=== PATIENT | female | born 1935 | race Caucasian/White ===

== ENCOUNTER 2019-01-13 11:00 | Emergency (ER) | payer MEDICARE, OTHER ==
--- NOTE | 2019-01-13 12:55 | CT ---
INDICATION: Worst headache frontal times [address] HEAD WITHOUT CONTRAST: Spiral examination of the brain was obtained with 3.75 mm axial sections with sagittal and coronal reconstructions 01/13/19--no comparisons. Total exam DLP = 1193.45 mGy-cm. noted in the internal carotid arteries especially the left. The left internal carotid artery extends to the middle cerebral and in the proximal cerebral segment of the middle cerebral artery on the left there is an appearance of increased density. This raises question of an acute embolus compatible with a very early thrombotic CVA. No definite sequela of this finding is identified at this time. It may represent an early finding. Cerebral angiography or CTA or MRA, may be helpful for further evaluation. There is some patchy increased density in the white matter suggesting a mild degree of microvascular disease. No shift of midline structures is seen. The ventricles are slightly prominent especially the right which may represent a mild degree of central atrophy. There also is prominence of the sulci at the temporal lobes and frontally compatible with asymmetrical frontal and temporal cortical atrophy. No definite bleeding site or hematoma was identified. Orbits appear to be grossly intact. The visualized paranasal sinuses and mastoid air cells appear to be fairly well aerated. No definite cranial abnormality was seen. IMPRESSION: 1. Cerebrovascular disease with possible thrombus in the proximal middle cerebral artery on the left. 2. Possible mild central atrophy more prominent on the right. 3. Cortical atrophy frontal temporal. 4. Suggestion of minimal microvascular disease. Report was called to Dr. Pierson at [address] [facility]
[2019-01-13] MEDS ORDERED: Gadoteridol 279.3 MG/ML 20 ML SDV IV SCH (14:15)
[2019-01-13] MEDS ORDERED: Levofloxacin 500 MG Tab PO STA (15:19)
[2019-01-13] MEDS ORDERED: Ketorolac 30 MG/ML SDV IM STA (15:20)
--- NOTE | 2019-01-13 16:19 | EDM.PDOC ---
ED HPI GENERAL MEDICAL PROBLEM - General Chief Complaint: Headache Stated Complaint: KIDNEY INFECTION Time Seen by Provider: 01/13/19 11:00 Source of Information: Reports: Patient, Family History Limitations: Reports: No Limitations - History of Present Illness INITIAL COMMENTS - FREE TEXT/NARRATIVE: 83 y.o.w.f was transferred from the clinic to the ED because of Dizziness and right flank pain. UA was pos for UTI. The symptoms were starting a few days ago. No trauma. No N/V No SOB, No CP. Please see H&P from the clinic.No other acute medical issues. BP 151/78 RR 18 Pulse ox 100% Pulse 75 Temp 36.8 Onset Date: 01/09/19 Onset Time: 09:00 Duration: Day(s):, Intermittent Location: Reports: Head, Back Quality: Reports: Dull Severity: Mild Improves with: Reports: Rest Worsens with: Reports: Movement Context: Reports: Other (Dysuria) Associated Symptoms: Reports: No Other Symptoms right side flank pain Pain Score (Numeric/FACES): 7 head Pain Score (Numeric/FACES): 4 - Related Data Allergies Allergy/AdvReac Type Severity Reaction Status Date / Time Dairy Products Allergy Diarrhea Verified 01/13/19 11:22 Sulfa (Sulfonamide Allergy Hives Verified 01/13/19 11:22 Antibiotics) Home Meds: Home Meds Latanoprost 1 drop EYEBOTH BEDTIME 09/29/14 [History] Losartan [Cozaar] 100 mg PO DAILY 09/29/14 [History] Multivitamin with Minerals [Multiple Vitamin] 1 tab PO DAILY 09/29/14 [History] Simvastatin 20 mg PO BEDTIME 09/29/14 [History] Acetaminophen [Tylenol] 650 mg PO Q4H PRN 08/24/15 [History] Calcium Carbonate/Vitamin D3 [Calcium 600-Vit D3 400 Tablet] 1 tab PO BIDMEALS 08/24/15 [History] Cholecalciferol (Vitamin D3) [Vitamin D3] 1,000 unit PO DAILY 08/24/15 [History] Metoprolol Succinate 25 mg PO DAILY 08/24/15 [History] Omeprazole [Prilosec] 20 mg PO BEDTIME 08/24/15 [History] Levofloxacin 500 mg PO DAILY #10 tablet 01/13/19 [Rx] Past Medical History HEENT History: Reports: Cataract, Glaucoma, Hard of Hearing, Impaired Vision Other HEENT History: both eyes Cardiovascular History: Reports: Blood Clots/VTE/DVT, High Cholesterol, Hypertension Other Cardiovascular History: Blood clots in lungs Gastrointestinal History: Reports: GERD, Hemorrhoids, Other (See Below) Other Gastrointestinal History: LACTOSE INTOLERANCE [employer] History: Reports: Other [employer] History: hysterectomy Musculoskeletal History: Reports: Fracture, Osteoarthritis, Osteoporosis, Other (See Below) Other Musculoskeletal History: hands, fracture of wrist, fracture of right knee Neurological History: Reports: Migraines Other Neuro History: during younger years. Endocrine/Metabolic History: Reports: Diabetes, Type II Hematologic History: Reports: Iron Deficiency Oncologic (Cancer) History: Reports: Breast Other Oncologic History: right breast mastectomy - Infectious Disease History Infectious Disease History: Reports: Chicken Pox, Influenza, Measles, Mumps, Rubella - Past Surgical History HEENT Surgical History: Reports: Cataract Surgery Female Surgical History: Reports: Hysterectomy, Mastectomy Neurological Surgical History: Reports: None Musculoskeletal Surgical History: Reports: Knee Replacement Oncologic Surgical History: Reports: Mastectomy Social & Family History - Family History Family Medical History: Noncontributory HEENT: Reports: Cataract Cardiac: Reports: High Cholesterol, Hypertension, [place] GI: Reports: Cirrhosis Musculoskeletal: Reports: Arthritis, RA Endocrine/Metabolic: Reports: Diabetes, type II Other Endocrine/Metabolic Family History: mother and brother Immunologic: Reports: None - Tobacco Use Smoking Status *Q: Never Smoker ED ROS GENERAL - Review of Systems Review Of Systems: See Below Constitutional: Reports: No Symptoms HEENT: Reports: No Symptoms Respiratory: Reports: No Symptoms Cardiovascular: Reports: No Symptoms Endocrine: Reports: No Symptoms GI/Abdominal: Reports: No Symptoms : Reports: Dysuria Musculoskeletal: Reports: Back Pain Skin: Reports: No Symptoms Neurological: Reports: No Symptoms Psychiatric: Reports: No Symptoms Hematologic/Lymphatic: Reports: No Symptoms Immunologic: Reports: No Symptoms - Physical Exam Exam: See Below Exam Limited By: No Limitations General Appearance: Alert, WD/WN, Mild Distress Eye Exam: Bilateral Eye: Normal Inspection Ears: Normal External Exam, Normal Canal Nose: Normal Inspection, Normal Mucosa Throat/Mouth: Normal Inspection, Normal Lips, Normal Voice, No Airway Compromise Head Exam: Atraumatic, Normocephalic Neck: Normal Inspection, Supple, Non-Tender, Full Range of Motion Respiratory/Chest: No Respiratory Distress, Lungs Clear Cardiovascular: Normal Peripheral Pulses, Regular Rate, Rhythm GI/Abdominal: Normal Bowel Sounds, Soft, Non-Tender, No Organomegaly (Female) Exam: Deferred Rectal (Female) Exam: Deferred Neuro Exam (Abbreviated): Alert, Oriented, CN II-XII Intact, Normal Cognition, Normal Gait Back Exam: Normal Inspection, CVA Tenderness (R) Extremities: Normal Inspection, Normal Range of Motion, Non-Tender, Normal Capillary Refill Psychiatric: Normal Affect, Normal Mood Skin Exam: Warm, Dry, Intact, Normal Color, No Rash Course - Vital Signs Text/Narrative:: 83 y.o.w.f was transferred from the clinic to the ED because of Dizziness and right flank pain. UA was pos for UTI. The symptoms were starting a few days ago. No trauma. No N/V No SOB, No CP. Please see H&P from the clinic.No other acute medical issues. 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 Morrow, Neurosurgeon, [facility]: Nothing surgical, may f/u as out patient in the clinic Reexam: Pt did well, was ambulating well, CT abd/pelvis will be performed in AM Plan: D/C with instructions Last Recorded V/S: Last Vital Signs Temp 36.4 C 01/13/19 11:00 Pulse 73 01/13/19 11:00 Resp 18 01/13/19 11:00 BP 151/78 H 01/13/19 11:00 Pulse Ox 100 01/13/19 11:00 Orthostatic Blood Pressure [ 160/75 Standing] Orthostatic Blood Pressure [ 162/77 Sitting] Orthostatic Blood Pressure [ 173/68 Supine] - Orders/Labs/Meds Orders: Active Orders 24 hr Category Date Time Status Abdomen Pelvis wo Cont [CT] Stat Exams 01/13/19 16:28 Ordered Ang Head wo Cont [MR] Stat Exams 01/13/19 12:55 Taken Brain w wo Cont [MR] Stat Exams 01/13/19 12:07 Ordered Labs: Laboratory Tests 01/13/19 Range/Units 11:20 Lactic Acid 1.0 (0.4-2.2) mmol/L Meds: Medications Discontinued Medications Generic Name Dose Route Start Last Admin Trade Name Eusebio PRN Reason Stop Dose Admin Gadoteridol 14 ml 01/13/19 14:15 01/13/19 15:21 Prohance IV 14 ml . DIRECTED NEGRO Administration Ketorolac Tromethamine 15 mg 01/13/19 15:20 01/13/19 15:25 Toradol IM 01/13/19 15:21 15 mg ONETIME STA Administration Levofloxacin 500 mg 01/13/19 15:19 01/13/19 15:25 Levaquin PO 01/13/19 15:20 500 mg ONETIME STA Administration Departure - Departure Time of Disposition: 16:16 Disposition: Home, Self-Care 01 Condition: Good Clinical Impression: UTI (urinary tract infection) Qualifiers: Urinary tract infection type: acute cystitis Hematuria presence: without hematuria Qualified Code(s): N30.00 - Acute cystitis without hematuria - Discharge Information Prescriptions: Levofloxacin 500 mg PO DAILY #10 tablet Instructions: Urinary Tract Infection, Adult, [id number] Referrals: Raymond Frazier MD [Primary Care Provider] - Forms: ED Department Discharge Additional Instructions: Please increase water intake, please take Motrin for pain, please take the Abx as recommended, please come back at 7.[address] abd/pelvis, come back if your symptoms get worse acutely - My Orders Last 24 Hours: My Active Orders 01/13/19 12:07 Brain w wo Cont [MR] Stat 01/13/19 12:55 Ang Head wo Cont [MR] Stat 01/13/19 16:28 Abdomen Pelvis wo Cont [CT] Stat - Assessment/Plan Last 24 Hours: My Active Orders 01/13/19 12:07 Brain w wo Cont [MR] Stat 01/13/19 12:55 Ang Head wo Cont [MR] Stat 01/13/19 16:28 Abdomen Pelvis wo Cont [CT] Stat
[2019-01-13 18:05] VITALS: BP 151/74
== END 2019-01-13 17:12 | disposition home or self-care (01) ==
LOC: FB.ED 11:00
DX: N30.00 Acute cystitis without hematuria (principal); R42 Dizziness and giddiness; I10 Essential (primary) hypertension; E11.9 Type 2 diabetes mellitus without complications; Z88.2 Allergy status to sulfonamides; Z91.011 Allergy to milk products; Z79.899 Other long term (current) drug therapy
CPT/HCPCS: 36415; 70450; 70544; 70553; 74021; 80053; 81001; 83605; 85025; 86140; 87086; 87088; 87186; 99284; A9270; A9579; J1885